=== PATIENT | male | born 1980 | race Caucasian/White ===

== ENCOUNTER 2021-02-14 01:03 | Emergency (ER) | payer SELFPAY ==
[~2021-02-14] VITALS: Ht 177.8 cm; Wt 72.6 kg
--- NOTE | 2021-02-14 01:10 | NUR ---
BIB [facility] AND [employer] FOR BIZARRE [facility]HAV[facility] . PER EMS PT WAS FOUND ON SOMEONE'S HOUSE ROOF TOP. PER [employer] AND EMS PT IS SUSSPECTED ON DRUG ABUSE, MOST LIKELY METH. PT CONFUSED ON ARRIVAL. UNABLE TO PROVIDE MEANINGFULL INFORMATION INCLUDING HIS NAME OR ..PT WAS PLACED IN ER BED 12, ON CLOSE OBSERVATION OF A SITTER. VSS. WILL CONT TO MONITOR
[2021-02-14] MEDS ORDERED: OLANZAPINE 10 MG VIAL IM ONE (01:13)
[2021-02-14] MEDS: OLANZAPINE 10 MG VIAL IM ONE (01:16)
[2021-02-14 01:29] LABS: BASOPHILS % (AUTO) 0.5 % (0.0-2.0); EOSINOPHILS % (AUTO) 2.7 % (0.0-6.0); HEMATOCRIT 42 % (39-51); HEMOGLOBIN 14.4 g/dL (13.5-17.5); LYMPHOCYTES # (AUTO) 1.3 /CMM (0.8-4.8); LYMPHOCYTES % (AUTO) 20.1 % (20.0-44.0); MEAN CORPUSCULAR HGB CONC 34 g/dl (31.0-36.0); MEAN CORPUSCULAR VOLUME 90 fL (80-96); MONOCYTES # (AUTO) 0.6 /CMM (0.1-1.30); MONOCYTES % (AUTO) 8.9 % (2.0-12.0); NEUTROPHILS # (AUTO) 4.4 /CMM (1.8-8.9); NEUTROPHILS % (AUTO) 67.8 % (43.0-81.0); PLATELET COUNT (AUTO) 285 /CMM (150-450); RED BLOOD CELL COUNT(AUTO) 4.65 MIL/uL (4.5-6.0); WHITE BLOOD COUNT (AUTO) 6.5 K/uL (4.3-11.0)
[2021-02-14 01:39] LABS: CARBON DIOXIDE 25 mmol/L (21-32); CHLORIDE 104 mmol/L (98-107); GLUCOSE 130 mg/dL (74-106); SODIUM SERUM 139 mmol/L (136-145); UREA NITROGEN, BLOOD 28 mg/dL (7-18)
[2021-02-14 01:51] LABS: ALANINE AMINOTRANSFERASE 45 U/L (12-78); ALBUMIN 3.7 g/dL (3.4-5.0); ALKALINE PHOSPHATASE 141 U/L (46-116); ASPARTATE AMINOTRANSFERASE 39 U/L (15-37); BILIRUBIN,DIRECT 0.1 mg/dL (0.0-0.2); BILIRUBIN,TOTAL 0.3 mg/dL (0.2-1.0); TOTAL PROTEIN, SERUM 7.5 g/dL (6.4-8.2)
[2021-02-14 01:56] LABS: ACETAMINOPHEN 0 ug/ml (10-30); ALCOHOL, BLOOD < 3 mg/dL (0-0)
[2021-02-14 03:14] LABS: BILIRUBIN,URINE Negative (NEGATIVE); COLOR,URINE YELLOW (YELLOW); LEUKOCYTE ESTERASE ,URINE Negative (NEGATIVE); NITRITE, URINE Negative (NEGATIVE); PH,URINE 5.5 (5.0-8.0); PROTEIN,URINE Negative (NEGATIVE); UGLUCOSE Negative (NEGATIVE); UROBILINOGEN,URINE 0.2 EU/dL (0.2)
[2021-02-14 03:39] LABS: BACTERIA,URINE None seen /HPF (None Seen); RBC,URINE 0-2 /HPF (0-2); SQUAMOUS EPITHELIAL CELL,UR Few /HPF (None Seen); WBC,URINE 0-2 /HPF (0-3)
--- NOTE | 2021-02-14 05:16 | NUR ---
PT AWAKE. AAOX4. DENIES SI/HI. AMBULATORY WITH STEADY GAIT. PER MD, MEDICALLY CLEARED FOR DISCHARGE. Patient given written and verbal discharge instructions. Patient verbalizes understanding of instructions. Patient is ambulatory with steady gait. Refuses offer of custodial placement. Patient given list of available shelters in surrounding area.
[2021-02-14 05:17] VITALS: BP 158/82
== END 2021-02-14 05:22 | disposition home or self-care (01) ==
LOC: ER 01:06 → EDBD 01:06 → ER 05:22
DX: F15.10 Other stimulant abuse, uncomplicated (principal)
CPT/HCPCS: 36415; 80048; 80076; 80143; 80307; 80320; 81001; 82962; 85025; 96372; 99283; J3490; G0480